=== PATIENT | male | born 1995 | race Two or more races ===

== ENCOUNTER 2018-12-07 22:22 | Emergency (ER) | payer OTHER ==
[2018-12-07] MEDS ORDERED: Lidocaine 2% 10 ML* VIAL INJ ONE (23:05)
[2018-12-07] MEDS ORDERED: Lidocaine 2% PF * 5 ML VIAL ONE (23:14)
[2018-12-08] MEDS ORDERED: Cephalexin CAP* 500 MG PO ONE (00:27)
--- NOTE | 2018-12-08 00:29 | ED ---
Laceration/Wound HPI - HPI Summary HPI Summary: Patient from group home complains of laceration across right cheek catholic and ear tonight. Tetanus status up-to-date. Denies any other pain injury or symptoms. - History of Current Complaint Stated Complaint: HEAD LAC Time Seen by Provider: 12/07/18 22:56 Hx Obtained From: Patient Mechanism of Injury: Sharp/Blunt Trauma Onset Severity: Mild Current Severity: Mild Pain Intensity: 4 Pain Scale Used: 0-10 Numeric Associated Signs & Symptoms: Negative - Allergy/Home Medications Allergies/Adverse Reactions: Allergies Allergy/AdvReac Type Severity Reaction Status Date / Time No Known Allergies Allergy Verified 12/07/18 22:27 PMH/Surg Hx/FS Hx/Imm Hx Endocrine/Hematology History: Denies: Hx Anticoagulant Therapy Cardiovascular History: Denies: Hx Pacemaker/ICD History: Denies: Hx Dialysis Sensory History: Denies: Hx Eye Prosthesis Opthamlomology History: Denies: Hx Legally Blind EENT History: Denies: Hx Deafness Neurological History: Denies: Hx Dementia Psychiatric History: Denies: Hx Autism Infectious Disease History: No Infectious Disease History: Denies: Traveled Outside the [place] in Last 30 Days - Social History Alcohol Use: None Substance Use Type: Reports: None Smoking Status (MU): Never Smoked Tobacco Review of Systems Constitutional: Negative Eyes: Negative ENT: Negative Cardiovascular: Negative Respiratory: Negative Gastrointestinal: Negative Genitourinary: Negative Musculoskeletal: Negative Skin: Other Neurological: Negative Psychological: Normal All Other Systems Reviewed And Are Negative: Yes Physical Exam - Summary Physical Exam Summary: Laceration to right upper cheek, right temporal, right ear. Laceration does not penetrate through to inside of mouth or ear. Laceration is superficial but does involve cartilage of right ear. Triage Information Reviewed: Yes Vital Signs On Initial Exam: Initial Vitals Temp Pulse Resp BP Pulse Ox 99 F 84 18 167/93 99 12/07/18 22:23 12/07/18 22:23 12/07/18 22:23 12/07/18 22:23 12/07/18 22:23 Vital Signs Reviewed: Yes Appearance: Positive: Well-Appearing Skin: Positive: Warm Head/Face: Positive: Normal Head/Face Inspection Eyes: Positive: Normal ENT: Positive: Normal ENT inspection Neck: Positive: Supple Respiratory/Lung Sounds: Positive: Clear to Auscultation Cardiovascular: Positive: Normal Abdomen Description: Positive: Nontender Musculoskeletal: Positive: Normal Neurological: Positive: Normal Psychiatric: Positive: Normal AVPU Assessment: Alert - Brandon Coma Scale Best Eye Response: 4 - Spontaneous Best Motor Response: 6 - Obeys Commands Best Verbal Response: 5 - Oriented Coma Scale Total: 15 Procedures - Laceration/Wound Repair 1 Location: face Description: Linear Anesthesia: Local, 2.0% Length, Depth and Shape: 11cm x 1.5 cm Betadine Prep?: Yes Irrigated w/ Saline (ccs): 400 Laceration/Wound Explored: clean Debridement: minimal Number of Sutures: 23 - 6.0 ethilon Layer Closure?: No Sterile Dressing Applied?: No Diagnostics - Vital Signs Vital Signs Temp Pulse Resp BP Pulse Ox 12/07/18 22:23 99 F 84 18 167/93 99 - Laboratory Lab Statement: Any lab studies that have been ordered have been reviewed, and results considered in the medical decision making process. Laceration Repair Course/Dx - Course Course Of Treatment: Patient from group home complains of laceration across right cheek catholic and ear tonight. Tetanus status up-to-date. Denies any other pain injury or symptoms. Physical exam:Laceration to right upper cheek, right temporal, right ear. Laceration does not penetrate through to inside of mouth or ear. Laceration is superficial but does involve cartilage of right ear. Wound sutured. Rx for Keflex. - Clinical Impression Provider Diagnoses: Laceration Discharge - Sign-Out/Discharge Documenting (check all that apply): Patient Departure Patient Received Moderate/Deep Sedation with Procedure: No - Discharge Plan Condition: Stable Disposition: HOME Prescriptions: Cephalexin CAP* [Keflex CAP*] 500 mg PO TID 6 Days #18 cap Patient Education Materials: Care For Your Stitches (ED), Facial Laceration (ED ) Referrals: Trina COCHRAN,Fahad Weathers [Primary Care Provider] - Additional Instructions: Sutures out in 5 days. Take antibiotics as directed. You may wash with warm running water and soap starting later this morning. Do not submerge wounds underwater for a few days. Keep wound clean and dry when not washing. Tylenol or ibuprofen for pain. Return to the ED for any new or worsening symptoms - Billing Disposition and Condition Condition: STABLE Disposition: Home
[2018-12-08 00:42] VITALS: BP 124/69
== END 2018-12-08 00:41 | disposition home or self-care (01) ==
LOC: EDBD → ED 22:22
DX: S01.411A Laceration without foreign body of right cheek and temporomandibular area, initial encounter (principal); W26.9XXA Contact with unspecified sharp object(s), initial encounter; Y92.149 Unspecified place in prison as the place of occurrence of the external cause
CPT/HCPCS: 12015; 99282; A9270-GY